=== PATIENT | female | born 1985 | race Caucasian/White ===

== ENCOUNTER 2018-01-27 14:26 | Outpatient (CLI) | payer OTHER | END 2018-01-28 13:11 | disposition home or self-care (01) | LOC: OBS/DEL 14:26 | DX: O23.43 Unspecified infection of urinary tract in pregnancy, third trimester (principal); O60.03 Preterm labor without delivery, third trimester; Z34.03 Encounter for supervision of normal first pregnancy, third trimester ==

== ENCOUNTER 2018-04-07 11:54 | Inpatient (IN) | payer OTHER ==
[~2018-04-07] VITALS: Ht 165.1 cm; Wt 73.5 kg
[2018-04-07] MEDS ORDERED: PRENATAL TABLE1 EAC1 PO (12:39)
[2018-04-07] MEDS ORDERED: SYNTHROID50 MCG PO (12:40)
== END 2018-04-09 14:09 | DRG 775 ==
LOC: LDR 11:54 → OB/GYN 11:54 → LDR 04-12 16:55
PROC: 10E0XZZ Delivery of Products of Conception, External Approach (ICD-10-PCS; principal; 2018-04-07)
PROC: 0KQM0ZZ Repair Perineum Muscle, Open Approach (ICD-10-PCS; 2018-04-07)
PROC: 3E033VJ Introduction of Other Hormone into Peripheral Vein, Percutaneous Approach (ICD-10-PCS; 2018-04-07)
PROC: 4A1HXCZ Monitoring of Products of Conception, Cardiac Rate, External Approach (ICD-10-PCS; 2018-04-07)
DX: O70.1 Second degree perineal laceration during delivery (principal); Z37.0 Single live birth; Z3A.39 39 weeks gestation of pregnancy

== ENCOUNTER 2021-05-25 20:57 | Outpatient (CLI) | payer OTHER ==
[~2021-05-25 20:57] MED LIST: PRENATAL TABLE1 EAC1 PO; SYNTHROID50 MCG PO
== END 2021-05-25 21:41 | disposition home or self-care (01) ==
LOC: NST 20:57
PROVIDERS: ATTEND Obstetrics & Gynecology
DX: Z34.82 Encounter for supervision of other normal pregnancy, second trimester (principal)

== ENCOUNTER 2021-05-30 08:20 | Outpatient (CLI) | payer OTHER | END 2021-05-30 09:20 | disposition home or self-care (01) | LOC: PRENATAL 08:20 | PROVIDERS: ATTEND Obstetrics & Gynecology Maternal & Fetal Medicine | DX: O35.0XX1 Maternal care for (suspected) central nervous system malformation in fetus, fetus 1 (principal); O35.3XX1 Maternal care for (suspected) damage to fetus from viral disease in mother, fetus 1; O98.512 Other viral diseases complicating pregnancy, second trimester; Z36.89 Encounter for other specified antenatal screening; Z3A.21 21 weeks gestation of pregnancy ==